=== PATIENT | male | born 1970 | race American Indian/Alaskan Native ===

== ENCOUNTER 2017-03-28 20:38 | Emergency (ER) | payer SELFPAY ==
[2017-03-28] MEDS ORDERED: TYLENOL PO ONE (22:55)
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
[2017-03-29] MEDS ORDERED: MOTRIN PO ONE (02:09)
[2017-03-29] MEDS ORDERED: MOTRIN ONE (02:13)
[2017-03-29] MEDS ORDERED: CATAPRES PO ONE (02:35)
[2017-03-29] MEDS ORDERED: CATAPRES ONE (02:39)
[2017-03-29 04:50] VITALS: BP 150/89
== END 2017-03-29 04:00 | disposition home or self-care (01) ==
LOC: ED 20:38
DX: S13.4XXA Sprain of ligaments of cervical spine, initial encounter (principal); V49.59XA Passenger injured in collision with other motor vehicles in traffic accident, initial encounter; Y93.9 Activity, unspecified; Y92.9 Unspecified place or not applicable; Y99.9 Unspecified external cause status; I10 Essential (primary) hypertension
CPT/HCPCS: 72040

== ENCOUNTER 2017-08-15 11:36 | Emergency (ER) | payer SELFPAY ==
--- NOTE | 2017-08-15 16:08 | Emergency Department Report ---
Chief Complaint: Extremity Injury, Upper Stated Complaint: FINGER PAIN - HPI History of Present Illness: 46 yo with hx of HTN on Maxide. Has tingling in all 10 finger tips. Will obtain BMP to assess for hypokalemia. - Exam Vital Signs: Vital Signs 08/15/17 11:43 Temperature 97.6 F Pulse Rate 82 Respiratory 16 Rate Blood Pressure 170/110 O2 Sat by Pulse 96 Oximetry MSE screening note: Focused history and physical exam performed. Due to findings the following was ordered: ED Disposition for MSE Condition: Stable Referrals: PRIMARY CARE, [Primary Care Provider] - 3-5 Days
[2017-08-15 16:51] LABS: BUN/Creatinine Ratio 15; Blood Urea Nitrogen 15 mg/dL (9-20); Calcium 8.7 mg/dL (8.4-10.2); Hemolysis Index 12
--- NOTE | 2017-08-15 17:10 | Emergency Department Report ---
ED General Adult HPI - General Chief complaint: Extremity Injury, Upper Stated complaint: FINGER PAIN Time Seen by Provider: 08/15/17 17:01 Source: patient Mode of arrival: Ambulatory Limitations: No Limitations - History of Present Illness Initial comments: 46 yo with hx of HTN on Maxide. Has tingling in all 10 finger tips. Will obtain BMP to assess for hypokalemia. Onset/Timin -: week(s) Location: upper extremity Radiation: non-radiation Severity scale (0 -10): 3 Quality: aching, other (tingling intermittent ) Consistency: intermittent Improves with: rest Worsens with: other (overuse ) Associated Symptoms: denies: confusion, chest pain, cough, diaphoresis, fever/ chills, headaches, loss of appetite, malaise, nausea/vomiting, rash, seizure, shortness of breath, syncope, weakness Treatments Prior to Arrival: none - Related Data Previous Rx's Medication Instructions Recorded Last Taken Type Cyclobenzaprine [Flexeril] 10 mg PO TID PRN #15 tablet 03/29/17 Unknown Rx Ibuprofen [Motrin 600 MG tab] 600 mg PO Q8H PRN #30 tablet 03/29/17 Unknown Rx Naproxen 500 mg PO BID PRN #30 tablet 08/15/17 Unknown Rx Allergies Allergy/AdvReac Type Severity Reaction Status Date / Time No Known Allergies Allergy Verified 03/28/17 22:47 ED Review of Systems ROS: Stated complaint: FINGER PAIN Other details as noted in HPI Constitutional: denies: chills, fever Eyes: denies: eye pain, eye discharge, vision change ENT: denies: ear pain, throat pain Respiratory: denies: cough, shortness of breath, wheezing Cardiovascular: denies: chest pain, palpitations Endocrine: no symptoms reported Gastrointestinal: denies: abdominal pain, nausea, diarrhea Genitourinary: denies: urgency, dysuria Musculoskeletal: arthralgia, myalgia. denies: back pain, joint swelling Skin: denies: rash, lesions Neurological: denies: headache, weakness, paresthesias Psychiatric: denies: anxiety, depression Hematological/Lymphatic: denies: easy bleeding, easy bruising ED Past Medical Hx - Past Medical History Previous Medical History?: Yes Hx Hypertension: Yes - Surgical History Past Surgical History?: No - Social History Smoking Status: Never Smoker Substance Use Type: None - Medications Home Medications: Home Medications Medication Instructions Recorded Confirmed Last Taken Type Cyclobenzaprine [Flexeril] 10 mg PO TID PRN #15 tablet 03/29/17 Unknown Rx Ibuprofen [Motrin 600 MG tab] 600 mg PO Q8H PRN #30 tablet 03/29/17 Unknown Rx Naproxen 500 mg PO BID PRN #30 tablet 08/15/17 Unknown Rx ED Physical Exam - General Limitations: No Limitations General appearance: alert, in no apparent distress - Head Head exam: Present: atraumatic, normocephalic - Eye Eye exam: Present: normal appearance - ENT ENT exam: Present: mucous membranes moist - Neck Neck exam: Present: normal inspection, full ROM. Absent: tenderness, lymphadenopathy, thyromegaly - Respiratory Respiratory exam: Present: normal lung sounds bilaterally. Absent: respiratory distress, wheezes, stridor, chest wall tenderness - Cardiovascular Cardiovascular Exam: Present: regular rate, normal rhythm. Absent: systolic murmur, diastolic murmur, rubs, gallop - GI/Abdominal GI/Abdominal exam: Present: soft, normal bowel sounds. Absent: distended, tenderness, guarding, rebound, rigid, organomegaly, mass, bruit, pulsatile mass , hernia - Rectal Rectal exam: Present: deferred - Extremities Exam Extremities exam: Present: normal inspection, full ROM, normal capillary refill. Absent: tenderness, pedal edema, joint swelling, calf tenderness - Expanded Upper Extremity Exam Left Hand Wrist exam: Present: normal inspection, full ROM. Absent: tenderness, swelling, abrasion, laceration, ecchymosis, deformity, crepidus, dislocation, erythema, amputation, nail avulsion, subungual hematoma Neuro motor exam: Present: wrist extension intact, thumb opposition intact, thumb IP flexion intact, thumb adduction intact, fingers 2-5 abduction intact Neurosensory exam: Present: 2-point discrimination, radial nerve intact, ulnar nerve intact, median nerve intact Vascular: Present: normal capillary refill, radial pulse, brachial pulse, ulnar pulse. Absent: vascular compromise, Pallo, pulse deficit radial art, pulse deficit ulnar art, pulse deficit brachial art Right Hand Wrist exam: Present: normal inspection, full ROM. Absent: tenderness, swelling, abrasion, laceration, ecchymosis, deformity, crepidus, dislocation, erythema, amputation, nail avulsion, subungual hematoma Neuro motor exam: Present: wrist extension intact, thumb opposition intact, thumb IP flexion intact, thumb adduction intact, fingers 2-5 abduction intact Neurosensory exam: Present: radial nerve intact, ulnar nerve intact, median nerve intact Vascular: Present: normal capillary refill, radial pulse, brachial pulse, ulnar pulse. Absent: vascular compromise, Pallo, pulse deficit radial art, pulse deficit ulnar art, pulse deficit brachial art - Back Exam Back exam: Present: normal inspection, full ROM - Neurological Exam Neurological exam: Present: alert, oriented X3, CN II-XII intact, normal gait, reflexes normal. Absent: motor sensory deficit - Psychiatric Psychiatric exam: Present: normal affect, normal mood - Skin Skin exam: Present: warm, dry, intact, normal color. Absent: rash ED Course Vital Signs 08/15/17 11:43 Temperature 97.6 F Pulse Rate 82 Respiratory 16 Rate Blood Pressure 170/110 O2 Sat by Pulse 96 Oximetry ED Medical Decision Making - Lab Data Result diagrams: 08/15/17 16:13 Laboratory Tests 08/15/17 16:13 Sodium 139 Potassium 3.8 Chloride 102.8 Carbon Dioxide 25 Anion Gap 15 BUN 15 Creatinine 1.0 Estimated GFR > 60 BUN/Creatinine Ratio 15 Glucose 109 H Calcium 8.7 - Medical Decision Making 46 yo with hx of HTN on Maxide. Has tingling in all 10 finger tips. Will obtain BMP to assess for hypokalemia. 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 Critical care attestation.: If time is entered above; I have spent that time in minutes in the direct care of this critically ill patient, excluding procedure time. ED Disposition Clinical Impression: Overuse syndrome Disposition: TO HOME OR SELFCARE Is pt being admited?: No Does the pt Need Aspirin: No Condition: Good Instructions: Musculoskeletal Pain (ED) Prescriptions: Naproxen 500 mg PO BID PRN #30 tablet PRN Reason: Pain Referrals: PRIMARY CARE, [Primary Care Provider] - 3-5 Days Forms: Work/School Release Form(ED) Time of Disposition: 17:15
[2017-08-15 17:22] VITALS: BP 164/100
== END 2017-08-15 17:21 | disposition home or self-care (01) ==
LOC: ED 11:36
DX: M70.842 Other soft tissue disorders related to use, overuse and pressure, left hand (principal); M70.841 Other soft tissue disorders related to use, overuse and pressure, right hand; Y93.89 Activity, other specified; I10 Essential (primary) hypertension
CPT/HCPCS: 36415; 80048; 99283